=== PATIENT | female | born 1965 | race Caucasian/White ===

== ENCOUNTER 2024-12-25 15:59 | Emergency (ER) | payer OTHER, SELFPAY ==
[~2024-12-25 15:59] MED LIST: Calcium Chloride 1 GM/10 ML Abboject SYRINGE ONE; EPINEPHrine 1 MG/10 ML Abboject SYRINGE ONE; Sodium Bicarb 50 MEQ/50 ML Abboject 8.4% SYRINGE ONE
[2024-12-25] MEDS ORDERED: levETIRAcetam 500 MG (5 mL) VIAL ONE (16:03)
[2024-12-25 16:37] LABS: INR-International Normal Ratio 2.2; Prothrombin Time 24.4 sec (12.0-14.7)
[2024-12-25 16:40] LABS: PTT 118.4 sec (22.9-36.1)
[2024-12-25 16:44] LABS: Bicarbonate (HCO3v) 14.8 mmol/L (22.0-28.0); CO2 Tension (PvCO2) 81.4 mmHg (42.0-51.0)
[2024-12-25 16:44] LABS: ALT (SGPT) 385 U/L (Less than 34); AST (SGOT) 395 U/L (11-34); Albumin 2.2 g/dL (3.1-4.5); Alkaline Phosphatase 69 U/L (40-110); Anion Gap 27 mmol/L (10-20); BUN (Urea Nitrogen) 13 mg/dL (9.8-20.1); Bilirubin, Total 0.1 mg/dL (0.3-1.2); Calc. Creatinine Clearance 0 mL/min (70-130); Calcium 9.4 mg/dL (7.8-10.44); Carbon Dioxide 10 mmol/L (22-29); Chloride 111 mmol/L (98-107); Estimated GFR 43; Globulin 2.2 g/dL (2.4-3.5); Potassium 3.7 mmol/L (3.5-5.1); Protein, Total 4.4 g/dL (6.0-8.3); Sodium 144 mmol/L (136-145)
[2024-12-25 16:45] LABS: Base Excess-Venous -19.3 mmol/L (-2.0 to 3.0); Calcium, Ionized 1.29 mmol/L (1.15-1.33); Chloride 109 mmol/L (98-107); Hemoglobin - Calc 11.8 g/dL (12.0-16.0); Potassium 3.9 mmol/L (3.5-5.1); Sodium 144 mmol/L (138-145); T. Carbon Dioxide 17.3 mmol/L (22.0-28.0); vO2 Saturation-calc 71.1 % (60.0-85.0)
[2024-12-25 16:50] LABS: pH (Arterial) 6.625 (7.35-7.45)
[2024-12-25 16:52] LABS: Base Excess (BEa) POC ABG -22.5 mmol/L (-2.0 to +3.0); Hematocrit POC ABG 30 % (38-51); Hemoglobin POC ABG 10.4 g/dL (12.0-17.0); O2 Saturation (calc) POC ABG 58.5 % (94.0-98.0); Potassium POC ABG 4.4 mmol/L (3.5-4.5); Sodium POC ABG 156 mmol/L (138-146)
[2024-12-25 16:52] LABS: Glucose 595 mg/dL (70-105)
[2024-12-25 16:53] LABS: Calcium, Ionized 1.78 mmol/L (1.15-1.33); Chloride POC ABG 106 mmol/L (98-107)
[2024-12-25 16:54] LABS: Critical Call Chem Troponin I NAV.CM12@1654; Troponin I 1.385 ng/mL (< 0.028)
[2024-12-25 16:59] LABS: Hematocrit 35.5 % (36.0-47.0); Hemoglobin 11.1 g/dL (12.0-16.0); Mean Corpuscular HGB CONC 31.1 g/dL (32.0-36.0); Mean Corpuscular Hemoglobin 28.8 pg (27.0-31.0); Mean Corpuscular Volume 92.5 fl (78.0-98.0); Mean Platelet Volume 9.1 fL (7.4-10.4); Platelet Count 103 10x3/uL (130-400); RBC Distribution Width 12.7 % (11.5-14.5); Red Blood Cell (RBC) Count 3.84 mill/uL (4.20-5.40); White Blood Cell (WBC) Count 17.6 10x3/uL (4.8-10.8)
[2024-12-25 18:12] LABS: MDiff Complete? YES
[2024-12-25 18:45] LABS: Band 2 % (5-11); Eosinophils 2 % (0-10); Lymphocytes 52 % (21-51); Monocytes 1 % (0-10); Myelocyte 2 % (0-0); Neutrophil 41 % (42-75)
[2024-12-25 18:47] LABS: Platelet Adequacy Comment Appears Decreased; RBC Morph Comment Within Normal Limits
== END 2024-12-25 20:26 | disposition expired ==
LOC: NAV ERS 15:59
DX: J96.01 Acute respiratory failure with hypoxia (principal)
CPT/HCPCS: 31500; 36415; 36416; 71045; 80053; 82330; 82435; 82803; 83880; 84132; 84295; 84484; 85014; 85025; 85610; 85730; 92950; 96374; J0171; J1953